=== PATIENT | male | born 1970 | race Two or more races ===

== ENCOUNTER 2025-08-24 10:29 | Outpatient (CLI) | payer OTHER ==
[~2025-08-24 10:29] MED LIST: KETO10TA2 PO
== END 2025-08-24 10:39 | disposition home or self-care (01) ==
LOC: SONOGRAMA 10:29
PROVIDERS: ATTEND Pathology Anatomic Pathology
DX: D34 Benign neoplasm of thyroid gland (principal); E07.89 Other specified disorders of thyroid; E04.9 Nontoxic goiter, unspecified